=== PATIENT | female | born 1985 | race African-American/Black ===

== ENCOUNTER 2020-05-14 10:14 | Emergency (ER) | payer OTHER ==
[2020-05-14 10:34] VITALS: BP 133/82; PULSE 78; TEMP 99; BMI 34.0
== END 2020-05-14 11:05 | disposition home or self-care (01) ==
LOC: FER 10:14
DX: K62.89 Other specified diseases of anus and rectum (principal)
CPT/HCPCS: 36415; 82272; 99283-25

== ENCOUNTER 2020-12-08 11:54 | Emergency (ER) | payer OTHER ==
[2020-12-08 12:03] VITALS: BP 125/100; PULSE 88; TEMP 98.7; BMI 38.0
[2020-12-08] MEDS ORDERED: LIDOCAINE 5% TOPICAL PATCH TP ONE (12:07)
[2020-12-08] MEDS ORDERED: valACYclovir HCL 500 MG TABLET (FP) ONE (12:10)
[2020-12-08] MEDS ORDERED: LIDOCAINE 5% TOPICAL PATCH ONE (12:11)
[2020-12-08] MEDS ORDERED: valACYclovir HCL 1000 MG TABLET PO ONE (12:23)
[2020-12-08] MEDS ORDERED: LIDOCAINE PATCH REMOVAL MC SCH (22:00)
== END 2020-12-08 12:30 | disposition home or self-care (01) ==
LOC: FER 11:54
DX: B02.9 Zoster without complications (principal)
CPT/HCPCS: 99283-25

== ENCOUNTER 2021-06-19 10:45 | Emergency (ER) | payer OTHER ==
[2021-06-19 11:06] VITALS: BP 131/82; PULSE 73; TEMP 98.6; BMI 34.4
[2021-06-19 11:18] LABS: EPITHELIAL CELLS MODERATE /hpf
[2021-06-19 12:06] LABS: ALBUMIN 3.8 g/dl (3.4-5.0); BILIRUBIN,TOTAL 0.4 mg/dl (0.2-1); CALCIUM 8.9 mg/dl (8.5-10); CREATININE 0.8 mg/dl (0.55-1.3); TOT PROT 7.5 g/dl (6.4-8.2)
[2021-06-19 12:08] LABS: HEMATOCRIT 36.4 % (32.4-45.2); HEMOGLOBIN 11.8 G/dL (10.7-15.3); MCH 22.3 pg (25.7-33.7); MCHC 32.3 g/dl (32.0-36.0); MEAN CELL VOLUME 69.1 fl (80-96); PLATELET COUNT 326.1 10^3/uL (134-434); RBC 5.27 10^6/uL (3.60-5.2); RDW 20.4 % (11.6-15.6); WHITE BLOOD COUNT 5.5 10^3/uL (4.0-10.8)
== END 2021-06-19 12:00 | disposition home or self-care (01) ==
LOC: FER 10:45
DX: F41.9 Anxiety disorder, unspecified (principal)
CPT/HCPCS: 36415; 80053; 81003; 81015; 84703; 85025; 99283-25

== ENCOUNTER 2022-02-07 09:56 | Emergency (ER) | payer OTHER ==
[2022-02-07 10:07] VITALS: BP 137/94; PULSE 72; RESP 16; TEMP 98.5; BMI 35.1
== END 2022-02-07 10:18 | disposition home or self-care (01) ==
LOC: FER 09:56
DX: J45.909 Unspecified asthma, uncomplicated (principal); Z76.0 Encounter for issue of repeat prescription
CPT/HCPCS: 99281-25